=== PATIENT | male | born 1930 | race Caucasian/White ===

== ENCOUNTER 2018-06-24 19:17 | Inpatient (IN) | payer MEDICARE, OTHER ==
--- NOTE | 2018-06-24 19:58 | ER Document Report ---
ED Medical Screen (RME) - General Chief Complaint: Nausea/Vomiting Stated Complaint: FEVER,CHILLS Time Seen by Provider: 06/24/18 19:40 Notes: 88-year-old male with history of, diverticulitis, diabetes presents to the emergency department for fever and chills that started at 5 PM tonight. He also has right-sided chest pain and associated shortness of breath. About 5 PM when he suddenly became hot and developed chills. He has vomited several times at home he received Zofran 4 mg in the ambulance and Tylenol 650 mg. T-max 102.8. Patient denies any headache, lightheadedness or dizziness, urinary symptoms. Patient says he has recently had sinusitis. EXAM: Patient skin hot to touch, does not appear flushed. Lungs clear to auscultation in all stone, shallow respirations. I have greeted and performed a rapid initial assessment of this patient. A comprehensive ED assessment and evaluation of the patient, analysis of test results and completion of medical decision making process will be conducted by an additional ED providers. - Related Data Allergies/Adverse Reactions: aspirin Allergy (Verified 06/24/18 19:53) NSAIDS (Non-Steroidal Anti-Inflamma Allergy (Verified 06/24/18 19:53)
[2018-06-24 20:08] LABS: HEMATOCRIT 45.6 % (37.9-51.0); HEMOGLOBIN 15.5 g/dL (13.5-17.0); MEAN CORPUSCULAR VOLUME 97 fl (80-97); PLATELET COUNT 144 10^3/uL (150-450); RED BLOOD COUNT 4.71 10^6/uL (4.35-5.55); RED CELL DISTRIBUTION WIDTH 13.3 % (11.5-14.0); WHITE BLOOD COUNT 7.5 10^3/uL (4.0-10.5)
[2018-06-24 20:21] LABS: VENOUS BLOOD BASE EXCESS -2.4 mmol/L; VENOUS BLOOD HCO3 21.7 mmol/L (20-32); VENOUS BLOOD PCO2 35.9 mmHg (35-63); VENOUS BLOOD PH 7.4 (7.30-7.42)
[2018-06-24 20:23] LABS: ALANINE AMINOTRANSFERASE 28 U/L (21-72); ALBUMIN 3.4 g/dL (3.5-5.0); ALKALINE PHOSPHATASE 131 U/L (38-126); ANION GAP 11 (5-19); ASPARTATE AMINO TRANSFERASE 23 U/L (17-59); BILIRUBIN,DIRECT 0.3 mg/dL (0.0-0.4); BILIRUBIN,TOTAL 0.5 mg/dL (0.2-1.3); BLOOD UREA NITROGEN 16 mg/dL (7-20); CALCIUM 8.4 mg/dL (8.4-10.2); CARBON DIOXIDE 22 mmol/L (22-30); CHLORIDE 103 mmol/L (98-107); GLUCOSE 263 mg/dL (75-110); POTASSIUM 4.5 mmol/L (3.6-5.0); SODIUM 136.3 mmol/L (137-145); TOTAL PROTEIN 6.1 g/dL (6.3-8.2)
[2018-06-24 20:25] LABS: ABSOLUTE LYMPHOCYTES# (MANUAL) 0.2 10^3/uL (0.5-4.7); ABSOLUTE MONOCYTES # (MANUAL) 0.1 10^3/uL (0.1-1.4); ABSOLUTE NEUTROPHILS# (MANUAL) 7.3 10^3/uL (1.7-8.2); BAND NEUTROPHILS % (MANUAL) 4 % (3-5); BASOPHILS % (MANUAL) 0 % (0-2); EOSINOPHILS % (MANUAL) 0 % (0-6); LYMPHOCYTES % (MANUAL) 2 % (13-45); MONOCYTES % (MANUAL) 1 % (3-13); NUCLEATED RED BLOOD CELLS 1 /100 WBC (0); SEGMENTED NEUTROPHILS % (MAN) 93 % (42-78); TOTAL CELLS COUNTED 100
[2018-06-24] MEDS ORDERED: ONDANSETRON HCL INJ/PF 4 MG/2 ML SDV IV ONE (20:25)
[2018-06-24 20:26] LABS: PLATELET CLUMPS PRESENT; RBC MORPHOLOGY COMMENT NORMO-CYTIC/CHROMIC
[2018-06-24 20:33] LABS: INTERNATIONAL RATION (INR) 0.95; PROTHROMBIN TIME 13.2 SEC (11.4-15.4)
--- NOTE | 2018-06-24 20:43 | RADIOLOGY REPORT (SQ) ---
EXAM DESCRIPTION: CLINICAL HISTORY: 88 years Male SOB COMPARISON: None. FINDINGS: Heart size is within normal limits. Mediastinum appears slightly widened which may be as a result of tortuous vascular structures but the possibility of underlying mass or adenopathy is not excluded. Recommend CT. Lungs are hyperinflated. No acute consolidation or evidence of edema. Small left effusion is suggested. No pneumothorax. IMPRESSION: Small left pleural effusion Widened mediastinum. Recommend CT to exclude underlying mass or adenopathy
[2018-06-24 20:44] LABS: CREATINE KINASE 24 U/L (55-170)
[2018-06-24 20:54] LABS: APPEARANCE,URINE CLOUDY; BILIRUBIN,URINE NEGATIVE (NEGATIVE); COLOR,URINE YELLOW; GLUCOSE, URINE 150 mg/dL (NEGATIVE); KETONES,URINE NEGATIVE (NEGATIVE); LEUKOCYTE ESTERASE,URINE MODERATE (NEGATIVE); NITRITE,URINE POSITIVE (NEGATIVE); PROTEIN,URINE NEGATIVE (NEGATIVE); URINE SPECIFIC GRAVITY 1.016; UROBILINOGEN,URINE NEGATIVE mg/dL (<2.0)
[2018-06-24] MEDS ORDERED: LEVOFLOXACIN 750 MG/D5W RTU 750 MG/150 ML RTUPB IV ONE (21:17)
[2018-06-24] MEDS ORDERED: MAG HYDROX/AL HYDROX/SIMETH SUSP 30 ML UDCUP PO PRN (22:08)
[2018-06-24] MEDS ORDERED: GLUCAGON,HUMAN RECOMB 1 MG INJ IM PRN (22:12)
[2018-06-24] MEDS ORDERED: DEXTROSE 50%-WATER 25 GM/50 ML DISP.SYRIN IV PRN ×2 (22:12)
[2018-06-24] MEDS ORDERED: DEXTROSE 40% GEL 15 GM TUBE PO PRN ×2 (22:12)
[2018-06-24] MEDS ORDERED: MORPHINE SULFATE 10 MG/ML INJ IV PRN (22:13)
[2018-06-24] MEDS ORDERED: ACETAMINOPHEN 325 MG TABLET PO PRN (22:13)
[2018-06-24] MEDS ORDERED: HYDRALAZINE HCL INJ/PF 20 MG/1 ML SDV IV PRN (22:13)
[2018-06-24] MEDS ORDERED: INSULIN REG, HUMAN 100 UNIT/ML 3 ML VIAL (PYX) SUBCUT PRN (22:15)
[2018-06-24] MEDS ORDERED: MEROPENEM 1 GM VIAL IV PRN (22:15)
[2018-06-24] MEDS ORDERED: FAMOTIDINE 20 MG TABLET PO ONE (23:45)
[2018-06-24] MEDS ORDERED: MEROPENEM 1 GM in NORMAL SALINE 50 ML IV ONE (23:45)
--- NOTE | 2018-06-25 00:37 | PDOC H&P ---
History of Present Illness Admission Date/PCP: 06/24/2018 STELLA POPE MD Patient complains of: Right flank pain History of Present Illness: LISA CRUM is a 88 year old male who presented to the emergency room with the acute onset of right flank pain. Patient admits that at about 5 PM he developed sudden onset, constant, severely intense explosive pressure-like pain "behind his kidney on the right side" radiating to the right side and right upper abdomen. The pain was accompanied by a sudden onset of fever with chills, acute generalized malaise as well as severe nausea with vomiting. Subsequent to multiple episodes of vomiting he developed right anterior lower chest pain worsened by taking deep breaths, mild dyspnea and a frontal headache. He admits prior similar episodes with previous frequent urinary tract infections. He denies identification of any aggravating or ameliorating factors for his flank pain. In the emergency room he was found to have a fever of 102.8 F and a urinalysis with increased WBCs and positive for leukocyte esterase and nitrite. He was subsequently admitted to the hospital for further evaluation treatment. Past Medical History Cardiac Medical History: Reports: Congestive Heart Failure, Myocardial Infarction, Hypertension Pulmonary Medical History: Denies: Asthma, Chronic Obstructive Pulmonary Disease (COPD) EENT Medical History: Reports: Ears - Recently diagnosed as having an ear infection Denies: Throat - Dysphagia Neurological Medical History: Denies: Hemorrhagic CVA, Ischemic CVA, Seizures Endocrine Medical History: Reports: Diabetes Mellitus Type 2 Denies: Diabetes Mellitus Type 1, Hyperthyroidism, Hypothyroidism Renal/ Medical History: Reports: Other - Status post left nephrectomy Denies: Chronic Kidney Disease, Nephrolithiasis Malignancy Medical History: Reports: Renal (Kidney) Cancer - Left kidney, Other - Bladder cancer GI Medical History: Denies: Cirrhosis, Hepatitis Musculoskeltal Medical History: Denies: Arthritis, Gout Skin Medical History: Denies: Eczema, Psoriasis Psychiatric Medical History: Denies: Alcohol Dependency, Substance Abuse, Tobacco Dependency Traumatic Medical History: Reports: None Hematology: Denies: Anemia, Bleeding Tendencies Infectious Medical History: Reports: Other Infectious History Note: Frequent urinary tract infections Past Surgical History Past Surgical History: Reports: Cholecystectomy, Orthopedic Surgery - bilat knee replacement, Other - Exploratory laparotomy with left nephrectomy. Bladder surgery for cancer. Social History Information Source: Patient Lives with: Spouse/Significant other Smoking Status: Never Smoker Frequency of Alcohol Use: Rare Hx Recreational Drug Use: No Drugs: None Hx Prescription Drug Abuse: No - Advance Directive Resuscitation Status: Full Code Surrogate healthcare decision maker:: Spouse Family History Family History: DM, Malignancy, Other - Heart problems Parental Family History Reviewed: Yes Children Family History Reviewed: No Sibling(s) Family History Reviewed.: Yes Medication/Allergy Allergies/Adverse Reactions: aspirin Allergy (Verified 06/24/18 19:53) NSAIDS (Non-Steroidal Anti-Inflamma Allergy (Verified 06/24/18 19:53) Review of Systems Constitutional: PRESENT: as per HPI, chills, fever(s), headache(s), other - Malaise Eyes: ABSENT: visual disturbances, other - Eye pain Ears: ABSENT: hearing changes, other - Ear pain Nose, Mouth, and Throat: PRESENT: headache(s). ABSENT: mouth pain, sore throat Cardiovascular: PRESENT: as per HPI, chest pain - Right-sided. ABSENT: edema, orthropnea, palpitations Respiratory: PRESENT: as per HPI, dyspnea. ABSENT: cough Gastrointestinal: PRESENT: as per HPI, abdominal pain - Right flank pain, nausea, vomiting. ABSENT: constipation, diarrhea Genitourinary: ABSENT: dysuria, hematuria Musculoskeletal: PRESENT: as per HPI, back pain - Right flank pain. ABSENT: joint swelling, muscle weakness Integumentary: ABSENT: pruritus, rash Neurological: ABSENT: confusion, convulsions, focal weakness, memory loss, syn cope Psychiatric: ABSENT: anxiety, depression Endocrine: ABSENT: cold intolerance, heat intolerance Hematologic/Lymphatic: PRESENT: easy bleeding, easy bruising Physical Exam Vital Signs: Temp Pulse Resp BP Pulse Ox 102.8 F H 18 115/60 93 06/24/18 19:52 06/24/18 21:01 06/24/18 21:01 06/24/18 21:01 Intake & Output 06/22/18 06/23/18 06/24/18 23:59 23:59 23:59 Weight 94.7 kg General appearance: PRESENT: cooperative, mild distress - Due to pain Head exam: PRESENT: atraumatic, normocephalic Eye exam: ABSENT: conjunctival injection, scleral icterus Ear exam: PRESENT: normal external ear exam. ABSENT: bleeding, drainage Mouth exam: PRESENT: dry mucosa, neck supple Neck exam: ABSENT: JVD, thyromegaly, tracheal deviation Respiratory exam: PRESENT: clear to auscultation zahira, symmetrical, unlabored Cardiovascular exam: PRESENT: RRR, tachycardia. ABSENT: clicks, gallop, rubs Pulses: PRESENT: normal radial pulses, normal dorsalis pedis pul Vascular exam: PRESENT: normal capillary refill. ABSENT: pallor GI/Abdominal exam: PRESENT: normal bowel sounds, soft, tenderness - Right costal margin subcostal area with tenderness reproducing right chest pain of chief complaint, right CVA tenderness exacerbating and reproducing the pain behind his kidney noted in the chief complaint. Rectal exam: PRESENT: deferred Extremities exam: ABSENT: joint swelling, pedal edema Musculoskeletal exam: PRESENT: full ROM, normal inspection Neurological exam: PRESENT: alert, oriented to person, oriented to place, oriented to time, oriented to situation, CN II-XII grossly intact. ABSENT: motor sensory deficit Psychiatric exam: PRESENT: appropriate affect, normal mood Skin exam: PRESENT: dry, intact, warm. ABSENT: jaundice, rash, urticaria Results Laboratory Results: 06/24/18 19:40 06/24/18 19:40 06/24/18 06/24/18 06/24/18 19:28 19:40 19:40 WBC 7.5 RBC 4.71 Hgb 15.5 Hct 45.6 MCV 97 MCH 33.0 MCHC 34.0 RDW 13.3 Plt Count 144 L Seg Neutrophils % Not Reportable Lymphocytes % Not Reportable Monocytes % Not Reportable Eosinophils % Not Reportable Basophils % Not Reportable Absolute Neutrophils Not Reportable Absolute Lymphocytes Not Reportable Absolute Monocytes Not Reportable Absolute Eosinophils Not Reportable Absolute Basophils Not Reportable VBG pH VBG pCO2 VBG HCO3 VBG Base Excess Sodium 136.3 L Potassium 4.5 Chloride 103 Carbon Dioxide 22 Anion Gap 11 BUN 16 Creatinine 0.87 Est GFR ( Amer) > 60 Est GFR (Non-Af Amer) > 60 Glucose 263 H Lactic Acid Calcium 8.4 Magnesium Total Bilirubin 0.5 AST 23 ALT 28 Alkaline Phosphatase 131 H Total Protein 6.1 L Albumin 3.4 L Urine Color YELLOW Urine Appearance CLOUDY Urine pH 5.0 Ur Specific [place] 1.016 Urine Protein NEGATIVE Urine Glucose (UA) 150 H Urine Ketones NEGATIVE Urine Blood SMALL H Urine Nitrite POSITIVE H Ur Leukocyte Esterase MODERATE H Urine WBC (Auto) 104 Urine RBC (Auto) 15 06/24/18 06/24/18 06/24/18 19:40 19:40 19:40 WBC RBC Hgb Hct MCV MCH MCHC RDW Plt Count Seg Neutrophils % Lymphocytes % Monocytes % Eosinophils % Basophils % Absolute Neutrophils Absolute Lymphocytes Absolute Monocytes Absolute Eosinophils Absolute Basophils VBG pH 7.40 VBG pCO2 35.9 VBG HCO3 21.7 VBG Base Excess -2.4 Sodium Potassium Chloride Carbon Dioxide Anion Gap BUN Creatinine Est GFR ( Amer) Est GFR (Non-Af Amer) Glucose Lactic Acid Cancelled 3.6 H Calcium Magnesium Total Bilirubin AST ALT Alkaline Phosphatase Total Protein Albumin Urine Color Urine Appearance Urine pH Ur Specific [place] Urine Protein Urine Glucose (UA) Urine Ketones Urine Blood Urine Nitrite Ur Leukocyte Esterase Urine WBC (Auto) Urine RBC (Auto) 06/24/18 19:40 WBC RBC Hgb Hct MCV MCH MCHC RDW Plt Count Seg Neutrophils % Lymphocytes % Monocytes % Eosinophils % Basophils % Absolute Neutrophils Absolute Lymphocytes Absolute Monocytes Absolute Eosinophils Absolute Basophils VBG pH VBG pCO2 VBG HCO3 VBG Base Excess Sodium Potassium Chloride Carbon Dioxide Anion Gap BUN Creatinine Est GFR ( Amer) Est GFR (Non-Af Amer) Glucose Lactic Acid Calcium Magnesium 1.7 Total Bilirubin AST ALT Alkaline Phosphatase Total Protein Albumin Urine Color Urine Appearance Urine pH Ur Specific [place] Urine Protein Urine Glucose (UA) Urine Ketones Urine Blood Urine Nitrite Ur Leukocyte Esterase Urine WBC (Auto) Urine RBC (Auto) 06/24/18 06/24/18 06/24/18 19:40 19:40 19:40 Creatine Kinase 24 L CK-MB (CK-2) 0.43 Troponin I < 0.012 Impressions: Chest X-Ray 06/24/18 19:53 IMPRESSION: Small left pleural effusion Widened mediastinum. Recommend CT to exclude underlying mass or adenopathy Assessment and Plan - Diagnosis (1) SIRS (systemic inflammatory response syndrome) Is this a current diagnosis for this admission?: Yes Plan: Patient's potential for sepsis is noted. He will be observed closely with serial lactic acid levels as well as daily CBCs and metabolic profiles. His vital signs were monitored closely and he will be treated with IV fluids as well as other symptomatic and supportive cares. Broad-spectrum antibiotic (meropenem) appropriate for treatment of sepsis has been selected for initial treatment until culture results allow for a more specific antibiotic choice. In the event of further signs of sepsis additional interventions will be undertaken. (2) Acute pyelonephritis Is this a current diagnosis for this admission?: Yes Plan: Patient is treated with meropenem 1 g IV every 8 hours and will also receive IV fluids and supportive as well as symptomatic therapy. He will use morphine sulfate 2 to 4 mg IV every every 2 hours as needed for pain on a sliding scale basis. Daily CBC, metabolic profile and magnesium level be obtained to follow his pyelonephritis. (3) Diabetes mellitus type 2 in nonobese Is this a current diagnosis for this admission?: Yes Plan: Patient will be continued on his current diabetic therapeutic regiment and a diabetic diet. Hemoglobin A1c will be obtained to assess his diabetic therapy efficacy and appropriate changes will be made if required. (4) CAD (coronary artery disease), [place] coronary artery Qualifiers: [place] vs. transplanted heart: [place] heart Associated angina: angina presence unspecified Qualified Code(s): I25.10 - Atherosclerotic heart disease of [place] coronary artery without angina pectoris Is this a current diagnosis for this admission?: Yes Plan: Patient will be continued on his usual medications for coronary artery disease/CHF/HTN. His vital signs be monitored closely and he will have a daily CBC, metabolic profile and magnesium level performed to aid in following his chronic medical illnesses. - Time Time Spent with patient: 25-34 minutes Anticipated discharge: Home, Home with Homehealth - Inpatient Certification Based on my medical assessment, after consideration of the patient's comorbidities, presenting symptoms, or acuity I expect that the services needed warrant INPATIENT care.: Yes I certify that my determination is in accordance with my understanding of Medicare's requirements for reasonable and necessary INPATIENT services [42 CFR 412.3e].: Yes Medical Necessity: Significant Comorbidiites Make Outpatient Treatment Too Risky, Need Close Monitoring Due to Risk of Patient Decompensation, Need For IV Fluids, Need for Pain Control, Need for IV Antibiotics, Risk of Complication if Not Cared For in Hospital, Risk of Diagnosis Which Will Require Inpatient Eval/Care/Monitoring
[2018-06-25] MEDS ORDERED: MEROPENEM 1 GM VIAL ONE ×2 (01:02→05:36)
[2018-06-25] MEDS: RINGERS SOLUTION,LACTATED 1,000 ML IV PRN ×2 (01:56→06:07)
[2018-06-25 02:42] LABS: CREATINE KINASE MB 0.45 ng/mL (<4.55)
[2018-06-25 02:43] LABS: TROPONIN I < 0.012 ng/mL
[2018-06-25] MEDS: MEROPENEM 1 GM in NORMAL SALINE 50 ML IV SCH ×3 (06:09→21:18)
[2018-06-25 07:57] LABS: ANION GAP 9 (5-19); BLOOD UREA NITROGEN 16 mg/dL (7-20); CALCIUM 8.3 mg/dL (8.4-10.2); CARBON DIOXIDE 25 mmol/L (22-30); CHLORIDE 104 mmol/L (98-107); CHOLESTEROL 175.31 mg/dL (0-200); CREATINE KINASE 24 U/L (55-170); GLUCOSE 110 mg/dL (75-110); POTASSIUM 4.5 mmol/L (3.6-5.0); SODIUM 138.4 mmol/L (137-145); TRIGLYCERIDES 158 mg/dL (<150)
[2018-06-25 07:59] LABS: HEMATOCRIT 41.4 % (37.9-51.0); MEAN CORPUSCULAR HEMOGLOBIN 32.4 pg (27.0-33.4); MEAN CORPUSCULAR HGB CONC 33.9 g/dL (32.0-36.0); MEAN CORPUSCULAR VOLUME 96 fl (80-97); PLATELET COUNT 135 10^3/uL (150-450); RED BLOOD COUNT 4.32 10^6/uL (4.35-5.55); RED CELL DISTRIBUTION WIDTH 13.2 % (11.5-14.0)
[2018-06-25 08:07] LABS: DIRECT LDL 107 mg/dL (<100)
[2018-06-25 08:09] LABS: CREATINE KINASE MB 0.42 ng/mL (<4.55)
[2018-06-25 08:11] LABS: TROPONIN I < 0.012 ng/mL
[2018-06-25 08:12] LABS: VLDL CHOLESTEROL 31.6 mg/dL (10-31)
[2018-06-25 08:13] LABS: FREE T3 2.87 pg/mL (2.77-5.27); FREE T4 (FREE THYROXINE) 0.74 ng/dL (0.78-2.19)
[2018-06-25 08:24] LABS: ABSOLUTE LYMPHOCYTES# (MANUAL) 0.8 10^3/uL (0.5-4.7); ABSOLUTE MONOCYTES # (MANUAL) 0.2 10^3/uL (0.1-1.4); BASOPHILS % (MANUAL) 0 % (0-2); EOSINOPHILS % (MANUAL) 0 % (0-6); LYMPHOCYTES % (MANUAL) 7 % (13-45); MONOCYTES % (MANUAL) 2 % (3-13); RBC MORPHOLOGY COMMENT NORMO-CYTIC/CHROMIC; SEGMENTED NEUTROPHILS % (MAN) 91 % (42-78); TOTAL CELLS COUNTED 100
[2018-06-25 08:25] LABS: PLATELET CLUMPS PRESENT; PLATELET COMMENT DECREASED
[2018-06-25 08:26] LABS: THYROID STIMULATING HORMONE 1.02 uIU/mL (0.47-4.68)
[2018-06-25] MEDS: ONDANSETRON HCL INJ/PF 4 MG/2 ML SDV IV PRN ×2 (08:36→13:28)
[2018-06-25] MEDS ORDERED: MORPHINE SULFATE 10 MG/ML INJ IV PRN ×3 (09:23→09:24)
[2018-06-25] MEDS: FAMOTIDINE 20 MG TABLET PO SCH ×2 (09:46→21:18)
[2018-06-25] MEDS: DOCUSATE SODIUM 100 MG CAPSULE PO SCH (09:46)
[2018-06-25] MEDS ORDERED: DOCUSATE SODIUM 100 MG/10 ML UDC PO SCH (10:00)
--- NOTE | 2018-06-25 10:44 | ER Document Report ---
Entered by NGUYỄN DELA CRUZ SCRIBE 06/24/182030 Acting as scribe for:LM STEPHENS MD ED General - General Chief Complaint: Nausea/Vomiting Stated Complaint: FEVER,CHILLS Time Seen by Provider: 06/24/18 19:40 Primary Care Provider: STELLA POPE MD [Primary Care Provider] - Follow up as needed Mode of Arrival: Ambulatory Information source: Patient, Relative Notes: Patient is an 88 year old male with CAD (1 stent), HTN, type 2 diabetes and a history of [place] presents to the emergency department complaining of multiple symptoms including fever, chill, nausea, vomiting, and right sided chest pain onset tonight. He also complains of pain behind his kidney on the right. Patient states around 1700 today, patient suddenly became hot and developed chills. He states he proceeded to vomit which he describes has "strawberry, blueberry, raspberry" in appearance. He reports developing right sided chest pain and shortness of breath. Patient denies any headaches. EMS administered 4mg of Zofran and 650mg of Tylenol. Of note, patient states he was diagnosed with a sinus and inner ear infection 1 week ago. The patient does get frequent urinary tract infections, but every 6 months. They never get this bad, he can usually go see his doctor. - Related Data Allergies/Adverse Reactions: aspirin Allergy (Verified 06/24/18 19:53) NSAIDS (Non-Steroidal Anti-Inflamma Allergy (Verified 06/24/18 19:53) Past Medical History - General Information source: Patient - Social History Smoking Status: Never Smoker Cigarette use (# per day): No Chew tobacco use (# tins/day): No Smoking Education Provided: No Frequency of alcohol use: None Drug Abuse: None Occupation: Retired Lives with: Family Family History: Reviewed & Not Pertinent - Past Medical History Cardiac Medical History: Reports: Hx Coronary Artery Disease, Hx Heart Attack - 2003, Hx Hypercholesterolemia - Used to be on Zocor, stopped because he did not tolerate the medicine well, Hx Hypertension - No current medications Neurological Medical History: Reports: Other - Tremor, currently on primidone Endocrine Medical History: Reports: Hx Diabetes Mellitus Type 2 Renal/ Medical History: Reports: Hx Benign Prostatic Hyperplasia Malignancy Medical History: Reports Hx Renal (Kidney) Cancer Psychiatric Medical History: Reports: Hx Post Traumatic Stress Disorder Past Surgical History: Reports: Hx Abdominal Surgery - Exploratory laparotomy with left nephrectomy, Hx Cholecystectomy, Hx Orthopedic Surgery - Bilateral total knee replacement Review of Systems - Review of Systems Constitutional: See HPI, Chills, Fever EENT: No symptoms reported Cardiovascular: See HPI, Chest pain Respiratory: No symptoms reported Gastrointestinal: See HPI, Nausea, Vomiting Genitourinary: Other - Frequent urinary tract infections Male Genitourinary: No symptoms reported Musculoskeletal: No symptoms reported Skin: No symptoms reported Hematologic/Lymphatic: No symptoms reported Neurological/Psychological: No symptoms reported -: Yes All other systems reviewed and negative Physical Exam - Vital signs Vitals: Resp 15 06/24/18 19:23 - Notes Notes: GENERAL: Alert, interacts well. No acute distress. HEAD: Normocephalic, atraumatic. EYES: Pupils equal, round, and reactive to light. Extraocular movements intact. ENT: Oral mucosa moist, tongue midline. NECK: Full range of motion. Supple. Trachea midline. LUNGS: Clear to auscultation bilaterally, no wheezes, rales, or rhonchi. No respiratory distress. Right anterior chest wall just inferior and lateral to the areola is tender to palpation. HEART: Regular rate and rhythm. No murmurs, gallops, or rubs. ABDOMEN: Soft, obese, intermittently tender on palpation to the right abdomen. Bowel sounds present in all 4 quadrants. No guarding, rigidity, or rebound. EXTREMITIES: Moves all 4 extremities spontaneously. Tremor. 1+ edema to the legs and ankles with the left being slightly more than the right. He states this is not unusual. NEUROLOGICAL: Alert and oriented x3. Normal speech. Patient does have a tremor that he attributes to his PTSD. PSYCH: Normal affect, normal mood. SKIN: Warm, dry, normal turgor. No rashes or lesions noted. Course - Vital Signs Vital signs: Temp Pulse Resp BP Pulse Ox 102.8 F H 25 H 94/65 L 94 06/24/18 19:52 06/24/18 20:01 06/24/18 20:01 06/24/18 20:01 - Laboratory Result Diagrams: 06/24/18 19:40 06/24/18 19:40 Laboratory results interpreted by me: 06/24/18 06/24/18 06/24/18 19:28 19:40 19:40 Plt Count 144 L Seg Neuts % (Manual) 93 H Lymphocytes % (Manual) 2 L Monocytes % (Manual) 1 L Abs Lymphs (Manual) 0.2 L Sodium 136.3 L Glucose 263 H POC Glucose Lactic Acid Alkaline Phosphatase 131 H Creatine Kinase Total Protein 6.1 L Albumin 3.4 L Urine Glucose (UA) 150 H Urine Blood SMALL H Urine Nitrite POSITIVE H Ur Leukocyte Esterase MODERATE H 06/24/18 06/24/18 06/24/18 19:40 19:40 20:14 Plt Count Seg Neuts % (Manual) Lymphocytes % (Manual) Monocytes % (Manual) Abs Lymphs (Manual) Sodium Glucose POC Glucose 256 H Lactic Acid 3.6 H Alkaline Phosphatase Creatine Kinase 24 L Total Protein Albumin Urine Glucose (UA) Urine Blood Urine Nitrite Ur Leukocyte Esterase - Diagnostic Test Radiology reviewed: Image reviewed, Reports reviewed - Chest x-ray shows lungs are hyper inflated with small left pleural effusion. - EKG Interpretation by Me EKG shows normal: Sinus rhythm, Bryson, Intervals, ST-T Waves. abnormal: QRS Complexes - Borderline R wave progression in the anterior leads Rate: Normal - 98 Rhythm: NSR [place]son/QRS: LAHB/LAFB Voltage: Decreased voltage When compared to previous EKG there are: Previous EKG unavailable - Consults Dr. 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 I personally performed the services described in the documentation, reviewed and edited the documentation which was dictated to the scribe in my presence, and it accurately records my words and actions.
--- NOTE | 2018-06-25 11:11 | EKG REPORT ---
SEVERITY:- ABNORMAL ECG - SINUS OR ECTOPIC ATRIAL RHYTHM LEFT ANTERIOR FASCICULAR BLOCK LOW VOLTAGE IN FRONTAL LEADS BORDERLINE R WAVE PROGRESSION, ANTERIOR LEADS : Confirmed by: Deandra May 25-Jun-2018 11:11:14
[2018-06-25 16:22] LABS: CREATINE KINASE MB 0.52 ng/mL (<4.55)
[2018-06-25 16:24] LABS: TROPONIN I < 0.012 ng/mL
--- NOTE | 2018-06-25 18:23 | PDOC PROGRESS REPORT ---
Subjective Progress Note for:: 06/25/18 Subjective:: No adverse events overnight. No new complaints. Vital signs are stable. He says he still having some chills intermittently. Not really complaining of too much in the way of pain. He said for the most part he is been able to get comfortable. No dysuria. Reason For Visit: FIRF, ACUTE RIGHT PYELONEPHRITIS Physical Exam Vital Signs: Temp Pulse Resp BP Pulse Ox 98.0 F 66 17 102/53 L 98 06/25/18 16:47 06/25/18 16:47 06/25/18 16:47 06/25/18 16:47 06/25/18 16:47 Intake & Output 06/24/18 06/25/18 06/26/18 06:59 06:59 06:59 Intake Total 1700 1722 Balance 1700 1722 Weight 93.5 kg General appearance: PRESENT: no acute distress, cooperative, disheveled Respiratory exam: PRESENT: clear to auscultation zahira, symmetrical, unlabored. ABSENT: accessory muscle use, crackles, prolonged expiratory phas, rhonchi, tachypnea, wheezes Cardiovascular exam: PRESENT: RRR - With some occasional irregular beats, +S1, +S2 Pulses: PRESENT: normal carotid pulses Vascular exam: PRESENT: normal capillary refill GI/Abdominal exam: PRESENT: normal bowel sounds, soft. ABSENT: distended, guarding, rebound, tenderness Extremities exam: ABSENT: clubbing, pedal edema Musculoskeletal exam: PRESENT: normal inspection. ABSENT: deformity Neurological exam: PRESENT: alert, awake, oriented to person, oriented to place, oriented to situation Psychiatric exam: PRESENT: flat affect Skin exam: PRESENT: dry, warm Results Laboratory Results: 06/25/18 07:23 06/25/18 07:23 06/24/18 06/24/18 06/24/18 19:28 19:40 19:40 WBC 7.5 RBC 4.71 Hgb 15.5 Hct 45.6 MCV 97 MCH 33.0 MCHC 34.0 RDW 13.3 Plt Count 144 L Seg Neutrophils % Not Reportable Lymphocytes % Not Reportable Monocytes % Not Reportable Eosinophils % Not Reportable Basophils % Not Reportable Absolute Neutrophils Not Reportable Absolute Lymphocytes Not Reportable Absolute Monocytes Not Reportable Absolute Eosinophils Not Reportable Absolute Basophils Not Reportable VBG pH VBG pCO2 VBG HCO3 VBG Base Excess Sodium 136.3 L Potassium 4.5 Chloride 103 Carbon Dioxide 22 Anion Gap 11 BUN 16 Creatinine 0.87 Est GFR ( Amer) > 60 Est GFR (Non-Af Amer) > 60 Glucose 263 H Lactic Acid Calcium 8.4 Magnesium Total Bilirubin 0.5 AST 23 ALT 28 Alkaline Phosphatase 131 H Total Protein 6.1 L Albumin 3.4 L Triglycerides Cholesterol LDL Cholesterol Direct VLDL Cholesterol HDL Cholesterol TSH Free T4 Free T3 pg/mL Urine Color YELLOW Urine Appearance CLOUDY Urine pH 5.0 Ur Specific [place] 1.016 Urine Protein NEGATIVE Urine Glucose (UA) 150 H Urine Ketones NEGATIVE Urine Blood SMALL H Urine Nitrite POSITIVE H Ur Leukocyte Esterase MODERATE H Urine WBC (Auto) 104 Urine RBC (Auto) 15 06/24/18 06/24/18 06/24/18 19:40 19:40 19:40 WBC RBC Hgb Hct MCV MCH MCHC RDW Plt Count Seg Neutrophils % Lymphocytes % Monocytes % Eosinophils % Basophils % Absolute Neutrophils Absolute Lymphocytes Absolute Monocytes Absolute Eosinophils Absolute Basophils VBG pH 7.40 VBG pCO2 35.9 VBG HCO3 21.7 VBG Base Excess -2.4 Sodium Potassium Chloride Carbon Dioxide Anion Gap BUN Creatinine Est GFR ( Amer) Est GFR (Non-Af Amer) Glucose Lactic Acid Cancelled 3.6 H Calcium Magnesium Total Bilirubin AST ALT Alkaline Phosphatase Total Protein Albumin Triglycerides Cholesterol LDL Cholesterol Direct VLDL Cholesterol HDL Cholesterol TSH Free T4 Free T3 pg/mL Urine Color Urine Appearance Urine pH Ur Specific [place] Urine Protein Urine Glucose (UA) Urine Ketones Urine Blood Urine Nitrite Ur Leukocyte Esterase Urine WBC (Auto) Urine RBC (Auto) 06/24/18 06/25/18 06/25/18 19:40 02:06 07:23 WBC RBC Hgb Hct MCV MCH MCHC RDW Plt Count Seg Neutrophils % Lymphocytes % Monocytes % Eosinophils % Basophils % Absolute Neutrophils Absolute Lymphocytes Absolute Monocytes Absolute Eosinophils Absolute Basophils VBG pH VBG pCO2 VBG HCO3 VBG Base Excess Sodium 138.4 Potassium 4.5 Chloride 104 Carbon Dioxide 25 Anion Gap 9 BUN 16 Creatinine 0.91 Est GFR ( Amer) > 60 Est GFR (Non-Af Amer) > 60 Glucose 110 Lactic Acid 3.8 H Calcium 8.3 L Magnesium 1.7 2.0 Total Bilirubin AST ALT Alkaline Phosphatase Total Protein Albumin Triglycerides 158 H Cholesterol 175.31 LDL Cholesterol Direct 107 H VLDL Cholesterol 31.6 H HDL Cholesterol 28 L TSH Free T4 Free T3 pg/mL Urine Color Urine Appearance Urine pH Ur Specific [place] Urine Protein Urine Glucose (UA) Urine Ketones Urine Blood Urine Nitrite Ur Leukocyte Esterase Urine WBC (Auto) Urine RBC (Auto) 06/25/18 06/25/18 06/25/18 07:23 07:23 07:23 WBC 11.0 H RBC 4.32 L Hgb 14.0 Hct 41.4 MCV 96 MCH 32.4 MCHC 33.9 RDW 13.2 Plt Count 135 L Seg Neutrophils % Not Reportable Lymphocytes % Not Reportable Monocytes % Not Reportable Eosinophils % Not Reportable Basophils % Not Reportable Absolute Neutrophils Not Reportable Absolute Lymphocytes Not Reportable Absolute Monocytes Not Reportable Absolute Eosinophils Not Reportable Absolute Basophils Not Reportable VBG pH VBG pCO2 VBG HCO3 VBG Base Excess Sodium Potassium Chloride Carbon Dioxide Anion Gap BUN Creatinine Est GFR ( Amer) Est GFR (Non-Af Amer) Glucose Lactic Acid 2.3 H Calcium Magnesium Total Bilirubin AST ALT Alkaline Phosphatase Total Protein Albumin Triglycerides Cholesterol LDL Cholesterol Direct VLDL Cholesterol HDL Cholesterol TSH 1.02 Free T4 0.74 L Free T3 pg/mL 2.87 Urine Color Urine Appearance Urine pH Ur Specific [place] Urine Protein Urine Glucose (UA) Urine Ketones Urine Blood Urine Nitrite Ur Leukocyte Esterase Urine WBC (Auto) Urine RBC (Auto) 06/24/18 06/24/18 06/24/18 19:40 19:40 19:40 Creatine Kinase 24 L CK-MB (CK-2) 0.43 Troponin I < 0.012 06/25/18 06/25/18 06/25/18 02:06 02:06 07:23 Creatine Kinase 27 L 24 L CK-MB (CK-2) 0.45 Troponin I < 0.012 06/25/18 06/25/18 06/25/18 07:23 15:45 15:45 Creatine Kinase 27 L CK-MB (CK-2) 0.42 0.52 Troponin I < 0.012 < 0.012 Impressions: Chest X-Ray 06/24/18 19:53 IMPRESSION: Small left pleural effusion Widened mediastinum. Recommend CT to exclude underlying mass or adenopathy Assessment and Plan - Diagnosis (1) Acute pyelonephritis Is this a current diagnosis for this admission?: Yes Plan: Continue broad-spectrum antibiotics, cultures are pending (2) CAD (coronary artery disease), [place] coronary artery Qualifiers: [place] vs. transplanted heart: [place] heart Associated angina: angina presence unspecified Qualified Code(s): I25.10 - Atherosclerotic heart disease of [place] coronary artery without angina pectoris Is this a current diagnosis for this admission?: Yes Plan: Continue her medications (3) Diabetes mellitus type 2 in nonobese Is this a current diagnosis for this admission?: Yes Plan: Continue home meds and sliding scale (4) SIRS (systemic inflammatory response syndrome) Is this a current diagnosis for this admission?: Yes Plan: Resolved - Time Time Spent with patient: 15-24 minutes
[2018-06-25] MEDS ORDERED: HYDROCODONE/ACETAMINOPHEN 5-325 MG TABLET PO PRN (18:54)
[2018-06-25] MEDS: GABAPENTIN 300 MG CAPSULE PO SCH (21:17)
[2018-06-25] MEDS: TEMAZEPAM 15 MG CAPSULE PO PRN (21:18)
[2018-06-26] MEDS: MEROPENEM 1 GM in NORMAL SALINE 50 ML IV SCH ×3 (05:32→21:49)
[2018-06-26 05:45] LABS: ABSOLUTE BASOPHILS # (AUTO) 0.1 10^3/uL (0.0-0.2); ABSOLUTE EOSINOPHILS # (AUTO) 0.1 10^3/uL (0.0-0.6); ABSOLUTE MONOCYTES (AUTO) 0.6 10^3/uL (0.1-1.4); BASOPHILS % (AUTO) 0.8 % (0-2); HEMOGLOBIN 13.8 g/dL (13.5-17.0); MONOCYTES % (AUTO) 9.1 % (3-13); TOTAL CELLS COUNTED % (AUTO) 100 %
[2018-06-26 05:50] LABS: ABSOLUTE LYMPHOCYTES (AUTO) 1.1 10^3/uL (0.5-4.7); EOSINOPHILS % (AUTO) 1.9 % (0-6); HEMATOCRIT 40.8 % (37.9-51.0); LYMPHOCYTES % (AUTO) 16.6 % (13-45); MEAN CORPUSCULAR HEMOGLOBIN 32.7 pg (27.0-33.4); MEAN CORPUSCULAR HGB CONC 33.9 g/dL (32.0-36.0); MEAN CORPUSCULAR VOLUME 96 fl (80-97); PLATELET COUNT 113 10^3/uL (150-450); RED BLOOD COUNT 4.23 10^6/uL (4.35-5.55); RED CELL DISTRIBUTION WIDTH 13.2 % (11.5-14.0); SEGMENTED NEUTROPHILS % (AUTO) 71.6 % (42-78); WHITE BLOOD COUNT 6.9 10^3/uL (4.0-10.5)
[2018-06-26 06:06] LABS: ANION GAP 10 (5-19); BLOOD UREA NITROGEN 17 mg/dL (7-20); CALCIUM 8.2 mg/dL (8.4-10.2); CARBON DIOXIDE 23 mmol/L (22-30); CHLORIDE 104 mmol/L (98-107); GLUCOSE 126 mg/dL (75-110); POTASSIUM 4.4 mmol/L (3.6-5.0); SODIUM 136.7 mmol/L (137-145)
[2018-06-26] MEDS: DOCUSATE SODIUM 100 MG CAPSULE PO SCH (10:51)
[2018-06-26] MEDS: FINASTERIDE 5 MG TABLET PO SCH (10:51)
[2018-06-26] MEDS: PRIMIDONE 250 MG TABLET PO SCH ×3 (10:51→18:27)
[2018-06-26] MEDS: FAMOTIDINE 20 MG TABLET PO SCH ×2 (10:51→21:50)
[2018-06-26] MEDS: GLIPIZIDE XL 5 MG TAB.ER.24 PO SCH (10:51)
--- NOTE | 2018-06-26 14:50 | PDOC PROGRESS REPORT ---
Subjective Progress Note for:: 06/26/18 Subjective:: No adverse events overnight. No flank pain. No fevers. Eating and drinking without difficulty. Ambulating independently. No dysuria. Reason For Visit: FIRF, ACUTE RIGHT PYELONEPHRITIS Physical Exam Vital Signs: Temp Pulse Resp BP Pulse Ox 98.0 F 68 16 130/60 H 100 06/26/18 11:04 06/26/18 11:04 06/26/18 11:04 06/26/18 11:04 06/26/18 11:04 Intake & Output 06/25/18 06/26/18 06/27/18 06:59 06:59 06:59 Intake Total 1699 2021 Balance 1699 2021 Weight 93.5 kg General appearance: PRESENT: no acute distress, cooperative, disheveled Respiratory exam: PRESENT: clear to auscultation zahira, symmetrical, unlabored. ABSENT: accessory muscle use, crackles, prolonged expiratory phas, rhonchi, tachypnea, wheezes Cardiovascular exam: PRESENT: RRR - With some occasional irregular beats, +S1, +S2 Pulses: PRESENT: normal carotid pulses Vascular exam: PRESENT: normal capillary refill GI/Abdominal exam: PRESENT: normal bowel sounds, soft. ABSENT: distended, guarding, rebound, tenderness Extremities exam: ABSENT: clubbing, pedal edema Musculoskeletal exam: PRESENT: normal inspection. ABSENT: deformity Neurological exam: PRESENT: alert, awake, oriented to person, oriented to place, oriented to situation Psychiatric exam: PRESENT: flat affect Skin exam: PRESENT: dry, warm Results Laboratory Results: 06/26/18 05:15 06/26/18 05:15 06/26/18 06/26/18 05:15 05:15 WBC 6.9 RBC 4.23 L Hgb 13.8 Hct 40.8 MCV 96 MCH 32.7 MCHC 33.9 RDW 13.2 Plt Count 113 L Seg Neutrophils % 71.6 Lymphocytes % 16.6 Monocytes % 9.1 Eosinophils % 1.9 Basophils % 0.8 Absolute Neutrophils 5.0 Absolute Lymphocytes 1.1 Absolute Monocytes 0.6 Absolute Eosinophils 0.1 Absolute Basophils 0.1 Sodium 136.7 L Potassium 4.4 Chloride 104 Carbon Dioxide 23 Anion Gap 10 BUN 17 Creatinine 0.91 Est GFR ( Amer) > 60 Est GFR (Non-Af Amer) > 60 Glucose 126 H Calcium 8.2 L Magnesium 2.0 06/24/18 19:28 Clean Catch Midstream Urine Culture - Final Escherichia Coli 06/24/18 06/24/18 06/24/18 19:40 19:40 19:40 Creatine Kinase 24 L CK-MB (CK-2) 0.43 Troponin I < 0.012 06/25/18 06/25/18 06/25/18 02:06 02:06 07:23 Creatine Kinase 27 L 24 L CK-MB (CK-2) 0.45 Troponin I < 0.012 06/25/18 06/25/18 06/25/18 07:23 15:45 15:45 Creatine Kinase 27 L CK-MB (CK-2) 0.42 0.52 Troponin I < 0.012 < 0.012 Impressions: Chest X-Ray 06/24/18 19:53 IMPRESSION: Small left pleural effusion Widened mediastinum. Recommend CT to exclude underlying mass or adenopathy Assessment and Plan - Diagnosis (1) Acute pyelonephritis Is this a current diagnosis for this admission?: Yes Plan: Continue broad-spectrum antibiotics, cultures are pending, we will switch to oral agent if appropriate (2) CAD (coronary artery disease), [place] coronary artery Qualifiers: [place] vs. transplanted heart: [place] heart Associated angina: angina presence unspecified Qualified Code(s): I25.10 - Atherosclerotic heart disease of [place] coronary artery without angina pectoris Is this a current diagnosis for this admission?: Yes Plan: Continue her medications (3) Diabetes mellitus type 2 in nonobese Is this a current diagnosis for this admission?: Yes Plan: Continue home meds and sliding scale (4) SIRS (systemic inflammatory response syndrome) Is this a current diagnosis for this admission?: Yes Plan: Resolved - Time Time Spent with patient: 15-24 minutes
[2018-06-26] MEDS: TEMAZEPAM 15 MG CAPSULE PO PRN (21:49)
[2018-06-26] MEDS: GABAPENTIN 300 MG CAPSULE PO SCH (21:50)
[2018-06-27 05:47] LABS: ABSOLUTE EOSINOPHILS # (AUTO) 0.1 10^3/uL (0.0-0.6); ABSOLUTE MONOCYTES (AUTO) 0.4 10^3/uL (0.1-1.4); ABSOLUTE NEUT (AUTO) 3.5 10^3/uL (1.7-8.2); BASOPHILS % (AUTO) 0.7 % (0-2); EOSINOPHILS % (AUTO) 1.9 % (0-6); HEMATOCRIT 42.7 % (37.9-51.0); HEMOGLOBIN 14.8 g/dL (13.5-17.0); LYMPHOCYTES % (AUTO) 19.4 % (13-45); MEAN CORPUSCULAR HEMOGLOBIN 33.1 pg (27.0-33.4); MEAN CORPUSCULAR HGB CONC 34.6 g/dL (32.0-36.0); MEAN CORPUSCULAR VOLUME 96 fl (80-97); MONOCYTES % (AUTO) 8.9 % (3-13); PLATELET COUNT 122 10^3/uL (150-450); RED BLOOD COUNT 4.46 10^6/uL (4.35-5.55); RED CELL DISTRIBUTION WIDTH 12.8 % (11.5-14.0); SEGMENTED NEUTROPHILS % (AUTO) 69.1 % (42-78); TOTAL CELLS COUNTED % (AUTO) 100 %
[2018-06-27] MEDS: MEROPENEM 1 GM in NORMAL SALINE 50 ML IV SCH (05:52)
[2018-06-27 06:18] LABS: ANION GAP 10 (5-19); BLOOD UREA NITROGEN 18 mg/dL (7-20); CALCIUM 8.5 mg/dL (8.4-10.2); CARBON DIOXIDE 23 mmol/L (22-30); CHLORIDE 103 mmol/L (98-107); GLUCOSE 141 mg/dL (75-110); POTASSIUM 4.3 mmol/L (3.6-5.0); SODIUM 136.3 mmol/L (137-145)
[2018-06-27] MEDS: FINASTERIDE 5 MG TABLET PO SCH (09:49)
[2018-06-27] MEDS: FAMOTIDINE 20 MG TABLET PO SCH (09:50)
[2018-06-27] MEDS: DOCUSATE SODIUM 100 MG CAPSULE PO SCH (09:50)
[2018-06-27] MEDS: PRIMIDONE 250 MG TABLET PO SCH (09:50)
[2018-06-27] MEDS: GLIPIZIDE XL 5 MG TAB.ER.24 PO SCH (09:59)
[2018-06-27 13:47] VITALS: BP 136/72
--- NOTE | 2018-06-27 16:21 | PDOC DISCHARGE SUMMARY ---
General - Admit/Disc Date/PCP Admission Date/Primary Care Provider: 06/24/18 22:34 STELLA POPE MD Discharge Date: 06/27/18 - Discharge Diagnosis (1) Acute pyelonephritis Is this a current diagnosis for this admission?: Yes Summary: Was initially put on IV antibiotics. Responded very well. Culture showed an E. coli that was sensitive to cephalosporins. He will finish up a course of treatment at home on Keflex. (2) CAD (coronary artery disease), [place] coronary artery Is this a current diagnosis for this admission?: Yes Summary: Stable on his home medications (3) Diabetes mellitus type 2 in nonobese Is this a current diagnosis for this admission?: Yes Summary: Controlled with his home medications (4) SIRS (systemic inflammatory response syndrome) Is this a current diagnosis for this admission?: Yes Summary: Due to his pyelonephritis, treated with antibiotics, now resolved. - Additional Information Resuscitation Status: Full Code Discharge Diet: Diabetic Discharge Activity: Activity As Tolerated Prescriptions: Cephalexin [Cephalexin 500 MG Tablet] 1 tab PO QID #40 tablet Home Medications: Cetirizine HCl [Zyrtec 10 mg Tablet] 1 tab PO DAILY 06/25/18 Cyanocobalamin (Vitamin B-12) [Vitamin B-12 Inj 1000 Mcg/1 ml Vial] 1,000 mcg IM .MONTHLY 06/25/18 Finasteride [Proscar 5 mg Tablet] 5 mg PO DAILY 06/25/18 Fluticasone Propionate [Flonase Nasal [place] 50 Mcg/[place] 16 gm] 1 spray NASL DAILY 06/25/18 Gabapentin [Neurontin 300 mg Capsule] 300 mg PO QHS 06/25/18 Glipizide [Glipizide Xl] 10 mg PO DAILY 06/25/18 Multivitamin/Iron/Folic Acid [Centrum Adults Tablet] 1 tab PO DAILY 06/25/18 Primidone 250 mg PO TID 06/25/18 Cephalexin [Cephalexin 500 MG Tablet] 1 tab PO QID #40 tablet 06/27/18 History of Present Illness History of Present Illness: LISA CRUM is a 88 year old male who presented to the emergency room with the acute onset of right flank pain. Patient admits that at about 5 PM he developed sudden onset, constant, severely intense explosive pressure-like pain "behind his kidney on the right side" radiating to the right side and right upper abdomen. The pain was accompanied by a sudden onset of fever with chills, acute generalized malaise as well as severe nausea with vomiting. Subsequent to multiple episodes of vomiting he developed right anterior lower chest pain worsened by taking deep breaths, mild dyspnea and a frontal headache. He admits prior similar episodes with previous frequent urinary tract infections. He d enies identification of any aggravating or ameliorating factors for his flank pain. In the emergency room he was found to have a fever of 102.8 F and a urinalysis with increased WBCs and positive for leukocyte esterase and nitrite. He was subsequently admitted to the hospital for further evaluation treatment. Hospital Course Hospital Course: He improved very well on IV antibiotics. His home medicines were used to manage his comorbidities. Urine culture came out with an E. coli that was sensitive to cephalosporins. He was transitioned over to Keflex which she will continue at home. His labs and examination were reassuring and he was having good condition. Physical Exam Vital Signs: Temp Pulse Resp BP Pulse Ox 98.4 F 64 18 136/72 H 99 06/27/18 13:38 06/27/18 13:38 06/27/18 13:38 06/27/18 13:38 06/27/18 13:38 Intake & Output 06/26/18 06/27/18 06/28/18 06:59 06:59 06:59 Intake Total 2021 250 50 Balance 2021 250 50 Weight 93.4 kg General appearance: PRESENT: no acute distress, cooperative, disheveled Respiratory exam: PRESENT: clear to auscultation zahira, symmetrical, unlabored. ABSENT: accessory muscle use, crackles, prolonged expiratory phas, rhonchi, tachypnea, wheezes Cardiovascular exam: PRESENT: RRR - With some occasional irregular beats, +S1, +S2 Pulses: PRESENT: normal carotid pulses Vascular exam: PRESENT: normal capillary refill GI/Abdominal exam: PRESENT: normal bowel sounds, soft. ABSENT: distended, guarding, rebound, tenderness Extremities exam: ABSENT: clubbing, pedal edema Musculoskeletal exam: PRESENT: normal inspection. ABSENT: deformity Neurological exam: PRESENT: alert, awake, oriented to person, oriented to place, oriented to situation Psychiatric exam: PRESENT: flat affect Skin exam: PRESENT: dry, warm Results Laboratory Results: 06/27/18 05:30 06/27/18 05:30 06/27/18 06/27/18 05:30 05:30 WBC 5.0 RBC 4.46 Hgb 14.8 Hct 42.7 MCV 96 MCH 33.1 MCHC 34.6 RDW 12.8 Plt Count 122 L Seg Neutrophils % 69.1 Lymphocytes % 19.4 Monocytes % 8.9 Eosinophils % 1.9 Basophils % 0.7 Absolute Neutrophils 3.5 Absolute Lymphocytes 1.0 Absolute Monocytes 0.4 Absolute Eosinophils 0.1 Absolute Basophils 0.0 Sodium 136.3 L Potassium 4.3 Chloride 103 Carbon Dioxide 23 Anion Gap 10 BUN 18 Creatinine 0.80 Est GFR ( Amer) > 60 Est GFR (Non-Af Amer) > 60 Glucose 141 H Calcium 8.5 Magnesium 2.0 06/24/18 06/24/18 06/24/18 19:40 19:40 19:40 Creatine Kinase 24 L CK-MB (CK-2) 0.43 Troponin I < 0.012 06/25/18 06/25/18 06/25/18 02:06 02:06 07:23 Creatine Kinase 27 L 24 L CK-MB (CK-2) 0.45 Troponin I < 0.012 06/25/18 06/25/18 06/25/18 07:23 15:45 15:45 Creatine Kinase 27 L CK-MB (CK-2) 0.42 0.52 Troponin I < 0.012 < 0.012 Impressions: Chest X-Ray 06/24/18 19:53 IMPRESSION: Small left pleural effusion Widened mediastinum. Recommend CT to exclude underlying mass or adenopathy Qualifiers - * PATIENT BEING DISCHARGED WITH ANY OF THE FOLLOWING DIAGNOSIS: No Acute Heart Failure Is this a Heart Failure Patient?: No Plan Time Spent: Greater than 30 Minutes
== END 2018-06-27 14:14 | disposition home or self-care (01) | DRG 690 ==
LOC: ER 19:17 → EH 22:34 → 3S 06-25 00:25 → 2N 06-25 22:55
PROVIDERS: ADMIT Emergency Medicine; ATTEND Emergency Medicine
DX: N10 Acute pyelonephritis (principal); I50.9 Heart failure, unspecified; I11.0 Hypertensive heart disease with heart failure; E11.8 Type 2 diabetes mellitus with unspecified complications; I25.10 Atherosclerotic heart disease of native coronary artery without angina pectoris; B96.20 Unspecified Escherichia coli [E. coli] as the cause of diseases classified elsewhere; I25.2 Old myocardial infarction; Z80.51 Family history of malignant neoplasm of kidney; Z90.5 Acquired absence of kidney
CPT/HCPCS: 36415; 71045; 80048; 80053; 80061; 81001; 82550; 82553; 82803; 82962; 83036; 83605; 83735; 84439; 84443; 84481; 84484; 85025; 85610; 87040; 87077; 87086; 87088; 87186; 93005; 93010; 96365; 96375; 99285; J1956; J2185; J2270; J2405; J3490; J7120